=== PATIENT | female | born 1960 | race African-American/Black ===

== ENCOUNTER 2024-12-05 22:50 | Emergency (ER) | payer MEDICARE ==
[~2024-12-05] VITALS: Ht 162.6 cm; Wt 118.0 kg
[~2024-12-05 22:50] MED LIST: ALBU6.7H15 INH; AMOX1TAB16 PO; ATEN1TAB42 PO; HYDR12.54 PO; LISI-186 PO; OMEP10CA5 MT
[2024-12-05 23:33] VITALS: O2SAT 96
[2024-12-06] MEDS: BACITRACIN ZINC OINT UDPKT TOP ONE (01:03)
[2024-12-06] MEDS: TETANUS, DIPHTHERIA, PERTUSSIS VAC/PF 0.5ML (>10YR OLD) IM ONE (01:23)
[2024-12-06 01:46] VITALS: BP 161/82; PULSE 68; RESP 18; TEMP 36.7; O2SAT 97
== END 2024-12-06 01:47 | disposition home or self-care (01) ==
LOC: ER 22:50
DX: S60.511A Abrasion of right hand, initial encounter (principal); S90.812A Abrasion, left foot, initial encounter; J45.909 Unspecified asthma, uncomplicated; I10 Essential (primary) hypertension; Z79.899 Other long term (current) drug therapy; W25.XXXA Contact with sharp glass, initial encounter; Y93.89 Activity, other specified; Y92.89 Other specified places as the place of occurrence of the external cause; Y99.8 Other external cause status
CPT/HCPCS: 90471; 90715; 99283